=== PATIENT | male | born 1980 | race Caucasian/White ===

== ENCOUNTER 2018-08-04 08:27 | Emergency (ER) | payer MEDICAID ==
--- NOTE | 2018-08-04 10:57 | EDM.PDOC ---
ED HPI GENERAL MEDICAL PROBLEM - General Chief Complaint: Behavioral/Psych Stated Complaint: DEPRESSION AND ANXIETY Time Seen by Provider: 08/04/18 08:30 Source of Information: Reports: Patient History Limitations: Reports: No Limitations - History of Present Illness INITIAL COMMENTS - FREE TEXT/NARRATIVE: Pt is a 38 year old male with severe major depression. Pt takes Cymbalta 30mg BID and trazodone. Pt claims that he woke up today morning and he felt like dying. The taught of dying went on for 3-4 hrs. He claims that he has no plan of hurting himself. He does not want to hurt himself. When asked how he would hurt himself, he claims by drinking alcohol or stopping his medications, but would never hurt himself with weapons. He claims that he is really no depressed. He claims he wants to talk to people , but is very shy and scared to talk to people because of his depression. He linda have [facility] helping him with his depression. Onset: Today Onset Date: 08/04/18 Onset Time: 06:00 Severity: Mild Improves with: Reports: None Worsens with: Reports: None Associated Symptoms: Denies: Confusion, Chest Pain, Cough, Diaphoresis, Fever/ Chills, Headaches, Loss of Appetite, Malaise, Nausea/Vomiting, Rash, Seizure, Shortness of Breath, Syncope, Weakness - Related Data Allergies Allergy/AdvReac Type Severity Reaction Status Date / Time No Known Allergies Allergy Verified 08/04/18 08:36 Home Meds: Home Meds DULoxetine HCl [Cymbalta] 30 mg PO BID 05/04/18 [History] traZODone 50 mg PO BEDTIME 07/19/18 [History] Past Medical History Respiratory History: Reports: Other (See Below) Other Respiratory History: hx of pneumonia as a child; had surgery to remove it Psychiatric History: Reports: Depression, Other (See Below) Other Psychiatric History: Insomnia - Past Surgical History HEENT Surgical History: Reports: Oral Surgery, Other (See Below) Other HEENT Surgeries/Procedures: tubes put in ears Respiratory Surgical History: Reports: Pneumonectomy Social & Family History - Family History Family Medical History: Noncontributory - Caffeine Use Caffeine Use: Reports: Soda ED ROS GENERAL - Review of Systems Review Of Systems: See Below Constitutional: Denies: Fever, Chills, Malaise, Weakness HEENT: Denies: Rhinitis, Throat Pain, Throat Swelling Respiratory: Reports: Wheezing. Denies: Shortness of Breath, Pleuritic Chest Pain, Cough, Sputum Cardiovascular: Denies: Chest Pain, Lightheadedness GI/Abdominal: Denies: Abdominal Pain, Diarrhea, Nausea, Vomiting Musculoskeletal: Denies: Joint Pain, Joint Swelling Skin: Denies: Bruising, Pruritis, Rash Neurological: Denies: Confusion, Dizziness Psychiatric: Reports: Depression, Suicidal Ideation. Denies: Agitation, Anxiety , Confusion, Cravings, Hallucinations, Homicidal Ideation, Mood Lability ED EXAM, GENERAL - Physical Exam Exam: See Below Exam Limited By: No Limitations General Appearance: Alert, WD/WN, No Apparent Distress Eye Exam: Bilateral Eye: EOMI, PERRL Ears: Normal External Exam, Normal Canal, Hearing Grossly Normal, Normal TMs Ear Exam: Bilateral Ear: Auricle Normal, Canal Normal, TM normal Nose: Normal Inspection, Normal Mucosa, No Blood Throat/Mouth: Normal Inspection, Normal Lips, Normal Teeth, Normal Gums, Normal Oropharynx, Normal Voice, No Airway Compromise Head: Atraumatic, Normocephalic Neck: Normal Inspection, Supple, Non-Tender, Full Range of Motion Respiratory/Chest: No Respiratory Distress, Lungs Clear, Normal Breath Sounds, No Accessory Muscle Use, Chest Non-Tender Cardiovascular: Normal Peripheral Pulses, Regular Rate, Rhythm, No Edema, No Gallop, No JVD, No Murmur, No Rub Peripheral Pulses: 2+: Radial (L), Radial (R) Extremities: Normal Inspection, Normal Range of Motion, Non-Tender, Normal Capillary Refill, No Pedal Edema Neurological: Alert, Oriented, CN II-XII Intact, Normal Cognition, Normal Gait, Normal Reflexes, No Motor/Sensory Deficits Psychiatric: Normal Affect, Depressed Mood, Other (Pt is very happy and smiling) . No: Flat Affect, Tearful Course - Vital Signs Text/Narrative:: Pt is very pleasant middle aged male well known to us. He has chronic major depression. He has been feeling low. He says he feels like dying for past 4 hrs now.But he will never hurt himself with weapons. He has been taking his medications. He claims he feels like this some times only. He claims that talking to people does make him feel better, but he is scared to talk to people because of his depression. I do feel patient will benefit from counselling, as he like to talk, but has nobody to talk. I did have psychiatric evaluation done in the emergency room through shadi mckenzie the counsellor feels patient is not in any risk of suicide, but should have outpatient counselling scheduled. I did discuss the report with patient. He feels happy. Wants to try counselling. Pt reassured advised to continue his medication. If he does have any suicidal taught or feel severely depressed or tearful should return to emergency room. Otherwise followup in clinic next week for recheck. Departure - Departure Time of Disposition: 11:00 Disposition: Home, Self-Care 01 Condition: Fair Clinical Impression: Depression with suicidal ideation - Discharge Information *PRESCRIPTION DRUG MONITORING PROGRAM REVIEWED*: Not Applicable *COPY OF PRESCRIPTION DRUG MONITORING REPORT IN PATIENT DIA: Not Applicable Referrals: PCP,None [Primary Care Provider] - Forms: ED Department Discharge - Problem List & Annotations (1) Depression with suicidal ideation SNOMED Code(s): 30099860 Code(s): F32.9 - MAJOR DEPRESSIVE DISORDER, SINGLE EPISODE, UNSPECIFIED; R45.851 - SUICIDAL IDEATIONS Status: Acute - Problem List Review Problem List Initiated/Reviewed/Updated: Yes - Assessment/Plan Assessment:: Depression with suicidal taught Plan: Pt is very pleasant middle aged male well known to us. He has chronic major depression. He has been feeling low. He says he feels like dying for past 4 hrs now.But he will never hurt himself with weapons. He has been taking his medications. He claims he feels like this some times only. He claims that talking to people does make him feel better, but he is scared to talk to people because of his depression. I do feel patient will benefit from counselling, as he like to talk, but has nobody to talk. I did have psychiatric evaluation done in the emergency room through shadi mckenzie the counsellor feels patient is not in any risk of suicide, but should have outpatient counselling scheduled. I did discuss the report with patient. He feels happy. Wants to try counselling. Pt reassured advised to continue his medication. If he does have any suicidal taught or feel severely depressed or tearful should return to emergency room. Otherwise followup in clinic next week for recheck.
== END 2018-08-04 11:09 | disposition home or self-care (01) ==
LOC: LB.ED 08:27
DX: F32.9 Major depressive disorder, single episode, unspecified (principal)
CPT/HCPCS: 99283

== ENCOUNTER 2019-05-03 05:05 | Emergency (ER) | payer MEDICAID ==
[2019-05-03] MEDS ORDERED: Sodium Chloride 0.9% 1,000 ML IV SCH (07:00)
--- NOTE | 2019-05-03 12:02 | ER ---
REASON FOR EMERGENCY ROOM VISIT: Alcohol intoxication and depression. HISTORY: This 39-year-old man had been drinking quite a bit throughout the day yesterday and in the early hours of this morning called an ambulance and said that he wanted "help." He was seen by the ambulance crew and had the smell of alcohol on his breath and had garbled speech, but he is known also have a speech impediment. He admitted to having a great deal of alcohol yesterday and is a regular marijuana smoker. It sounds like he has been drinking more than usual lately, but he has been known to do this from time to time. At this time, he was interviewed, he seemed to be somewhat intoxicated and was unable to actually give me a good idea as to how often he has been drinking. He does have a history of significant depression for which he has seen Dr. De La Rosa apparently in [place]. He denies any intent to harm himself at this time, but states that he has been feeling depressed lately. PAST MEDICAL HISTORY: Significant for, 1. Speech impediment. 2. Depression. 3. Pulmonary resection. 4. Marijuana and alcohol abuse. MEDICATIONS: He normally is supposed to be taking duloxetine 30 mg p.o. b.i.d. (he said he ran out). He also has taken trazodone 50 mg p.o. at bedtime p.r.n. ALLERGIES: NONE TO MEDICATIONS. SOCIAL HISTORY: He is not . He lives with 2 roommates. He works at [employer]. He admits to drinking alcohol sporadically, sometimes frequently as well as regular use of marijuana. REVIEW OF SYSTEMS: Pertinent positives and negatives as listed above. IMPRESSION: 1. Alcohol intoxication. 2. Depression. FURTHER EMERGENCY ROOM COURSE: We did get a toxicology screen which was positive for marijuana. His blood alcohol level was quite elevated at 374 mg/dL. Repeat determination 4 hours later showed that it was coming down to 268 mg/dL. He was given 1 L normal saline IV over 4 hours and allowed to simply sleep it off. When he awoke, he was much more lucid and I once again had a conversation with him regarding the importance of followup with his provider as well as his psychologist. He should be able to see his provider to discuss whether or not he should continue his Cymbalta or any of other course of action. I cautioned him about his drinking binges and that this could have grave long-term consequences for him. He understands and agrees with this plan. All questions were answered. YOSHI /[id number] BRISEYDA
== END 2019-05-03 10:59 | disposition home or self-care (01) ==
LOC: LB.ED 05:05
DX: F10.120 Alcohol abuse with intoxication, uncomplicated (principal); F32.9 Major depressive disorder, single episode, unspecified
CPT/HCPCS: 36415; 80053; 80307; 80320; 96360; 96361; 99284; J7030; A0425; A0429; G0480

== ENCOUNTER 2019-05-23 | Observation (INO) | payer MEDICAID ==
[2019-05-23] MEDS: Sodium Chloride 0.9% 1,000 ML IV SCH ×2 (01:30→11:07)
--- NOTE | 2019-05-23 02:32 | ER ---
Emergency Room Note and Admission History and Physical REASON FOR ADMISSION: Breathing difficulty. HISTORY OF PRESENT ILLNESS: This 39-year-old man with a known speech impediment and a past history of issues related to depression and alcohol abuse as well as marijuana abuse, who was at a republican at some friend's house when they noticed that he was having some difficulty breathing and shaking fairly violently. He did not lose any consciousness to this episode and further details are unknown at this time. The friends who witnessed this, called an ambulance, and they arrived and brought him to the emergency room for evaluation. The patient has no prior seizure history. He does have a history of alcohol abuse, depression, and marijuana abuse, and has admitted in the past that he is a very regular user of marijuana probably on a daily basis. There was an additional concern related to the ambulance crew that arrived that they had noticed an empty box that contained cough medicine and the patient admitted that he had ingested some cough medicine at least a portion of a bottle. At this time, he is fairly alert and answers questions reasonably appropriately considering his speech impediment which is significant. He was last seen in the emergency room and observed overnight on 05/03 with acute alcohol intoxication and depression issues. In that regard, he denies feeling depressed lately. He states that at this time, he only drinks about one beer per day. When he was admitted last time, he stated that he was seeing Dr. De La Rosa in [place] for his depression and was being followed by him in that regard. There was no witnessed incontinence of urine or actual tonic-clonic seizure activity, but he was shaking and trembling quite vigorously according to the observers where they were gathered. PAST MEDICAL HISTORY: 1. Speech impediment. 2. History of alcohol abuse. 3. History of marijuana abuse. 4. History of pulmonary resection. MEDICATIONS: Include: 1. Duloxetine. 2. Trazodone at bedtime. ALLERGIES: NONE TO MEDICATIONS. SOCIAL HISTORY: He is not . He lives with 2 roommates and works at [employer]. He admits to being a regular pot smoker on almost daily basis. His alcohol ingestion lately has been fairly light (1 beer per day). REVIEW OF SYSTEMS: Pertinent positives and negatives as listed in the HPI. PHYSICAL EXAMINATION: GENERAL: He is afebrile. Pulse 109, blood pressure 156/86, respiratory rate 22, O2 sats 97% on room air. GENERAL: He is reasonably alert and in no acute distress at this time. HEENT: He has a mild reddish rash about his face, it almost looks like a flash-type burn or sunburn. He is unaware of this. His pupils are midposition, but reacting to light. Oropharynx is normal. NECK: Supple. No JVD. Trachea is midline. CHEST: Clear to auscultation with good breath sounds and good air exchange bilaterally and no wheezes, rhonchi, or rales. CARDIAC: Regular rate without murmur. ABDOMEN: Soft. EXTREMITIES: No deformities. Normal pulses. No cyanosis. NEUROLOGIC: Cranial nerves 2 through 12 are intact. He does have some slight nystagmus in both eyes with both lateral and medial gaze. Muscle strength, bulk, and tone is normal and symmetrical bilaterally. When I did try to get him to demonstrate muscle strength in his lower extremities, he was very tight and he had lot of tremor in his lower extremities that was almost an intention tremor type of thing, but they were both symmetrical. His deep tendon reflexes were symmetrical but not brisk. Sensation is intact to crude touch. SKIN: Rash as described above. LABORATORY DATA: Tox screen is pending at this time as well as blood alcohol. CBC is unremarkable with a WBC of 8.5 and hemoglobin of 14.7. CMP is pending at the time of this dictation as well. We also have a blood alcohol level pending. IMPRESSION: 1. Substance abuse including marijuana and possibly additional substance. 2. Episode of shaking and respiratory distress by history, not witnessed here. PLAN: The sensible thing at this point would be to simply admit him and observe him and check his vitals frequently. We will have to keep an eye on him to see if there is any witnessed seizure-type of activity. I will go ahead and give him a liter of normal saline and await his toxicology screen to see if there is anything else. The patient is agreeable to this. He will be followed later on this morning by Dr. Hernandez in my absence. SEN/KIYA /[id number]
[2019-05-23] MEDS ORDERED: LORazepam 1 MG Tab PO ONE (09:45)
--- NOTE | 2019-05-23 11:02 | PCM.PN ---
- General Info Date of Service: 05/23/19 Subjective Update: Patient continues to have agitation and anxiety. He appears very tense and looks around the room oddly. He later discussed with nursing that he took 16 tablets of Coricidin. Poison control was contacted and recommendations for further monitoring to be followed and EKG, LABS to be done. Functional Status: Reports: Tolerating Diet - Review of Systems General: Reports: Other (agitation) HEENT: Reports: Visual Changes Pulmonary: Reports: No Symptoms Cardiovascular: Reports: No Symptoms Gastrointestinal: Reports: No Symptoms Musculoskeletal: Reports: No Symptoms Skin: Reports: No Symptoms Neurological: Reports: Confusion Psychiatric: Reports: Hallucinations - Patient Data Vitals - Most Recent: Last Vital Signs Temp 37.9 C 05/23/19 10:00 Pulse 79 05/23/19 10:00 Resp 16 05/23/19 10:00 BP 150/103 H 05/23/19 10:00 Pulse Ox 95 05/23/19 10:00 Weight - Most Recent: 63.503 kg I&O - Last 24 Hours: Intake & Output 05/22/19 05/23/19 05/23/19 22:59 06:59 14:59 Intake Total 460 Output Total 660 Balance -200 Lab Results Last 24 Hours: Laboratory Results - last 24 hr 05/23/19 05/23/19 05/23/19 Range/Units 00:40 00:40 04:35 WBC 8.5 (4.0-11.0) K/uL RBC 4.48 L (4.50-6.50) M/uL Hgb 14.7 (13.0-18.0) g/dL Hct 42.9 (40.0-54.0) % MCV 96 (76-96) fL MCH 32.8 H (27.0-32.0) pg MCHC 34.3 (31.0-35.0) g/dL RDW 13.1 (11.0-16.0) % Plt Count 269 (150-400) K/uL MPV 9.3 (6.0-10.0) fL Neut % (Auto) 85.8 H (45.0-70.0) % Lymph % (Auto) 8.8 L (20.0-40.0) % [place] % (Auto) 4.7 (3.0-10.0) % Eos % (Auto) 0.2 L (1.0-5.0) % Baso % (Auto) 0.5 (0.0-0.5) % Neut # (Auto) 7.28 (2.00-7.50) K/uL Lymph # (Auto) 0.75 L (1.50-4.00) K/uL [place] # (Auto) 0.40 (0.20-0.80) K/uL Eos # (Auto) 0.02 L (0.04-0.40) K/uL Baso # (Auto) 0.04 (0.02-0.10) K/uL Sodium 137 (136-145) mmol/L Potassium 3.8 (3.5-5.1) mmol/L Chloride 102 (98-107) mmol/L Carbon Dioxide 26.4 (21.0-32.0) mmol/L Anion Gap 12.4 (5.0-15.0) mmol/L BUN 18 (8-26) mg/dL Creatinine 1.16 (0.70-1.30) mg/dL Est Cr Clr Drug Dosing TNP Estimated GFR (MDRD) > 60 (>60) MLS/MIN BUN/Creatinine Ratio 15.5 (6-25) Glucose 124 H (74-100) mg/dL Calcium 8.2 L (8.5-10.1) mg/dL Total Bilirubin 0.4 (0.0-1.0) mg/dL AST 25 (15-37) U/L ALT 28 (12-78) U/L Alkaline Phosphatase 80 (46-116) U/L Total Protein 7.2 (6.4-8.2) g/dL Albumin 3.8 (3.4-5.0) g/dL Globulin 3.4 (2.2-4.2) g/dL Albumin/Globulin Ratio 1.1 (0.8-2.0) Urine Opiates Screen Negative (NEGATIVE) Ur Oxycodone Screen Positive H (NEGATIVE) Urine Methadone Screen Negative (NEGATIVE) Ur Barbiturates Screen Negative (NEGATIVE) Ur Tricyclics Screen Negative (NEGATIVE) Ur Phencyclidine Scrn Negative (NEGATIVE) Ur Amphetamine Screen Negative (NEGATIVE) U Methamphetamines Scrn Negative (NEGATIVE) Urine MDMA Screen Negative (NEGATIVE) U Benzodiazepines Scrn Negative (NEGATIVE) U Cocaine Metab Screen Negative (NEGATIVE) U Marijuana (THC) Screen Negative (NEGATIVE) Ethyl Alcohol < 3.0 (<3.0) mg/dL Med Orders - Current: Current Medications Sodium Chloride (Normal Saline) 1,000 mls @ 100 mls/hr IV ASDIRECTED NAVARRO Last Admin: 05/23/19 01:30 Dose: 100 mls/hr Discontinued Medications Lorazepam (Ativan) 1 mg PO ONETIME ONE Stop: 05/23/19 09:46 - Exam General: Alert, Cooperative HEENT: Pupils Equal, Pupils Reactive, EOMI Neck: Supple Lungs: Clear to Auscultation, Normal Respiratory Effort Cardiovascular: Regular Rate, Regular Rhythm Back Exam: Normal Inspection Extremities: Normal Inspection - Problem List & Annotations (1) Overuse of medication SNOMED Code(s): 674108233 Code(s): Z91.14 - PATIENT'S OTHER NONCOMPLIANCE WITH MEDICATION REGIMEN Status: Acute Priority: High - Problem List Review Problem List Initiated/Reviewed/Updated: Yes - My Orders Last 24 Hours: My Active Orders 05/23/19 09:44 EKG 12 Lead [EK] Routine 05/23/19 09:45 EKG Documentation Completion [RC] ASDIRECTED ACETAMINOPHEN [CHEM] Urgent - Plan Plan:: Patient counseled on medication use. Patient acknowledged to taking 16 tablets of Coricidin. He does appear to be having hallucinations. Patient to remain in observation and obtain more fluids. EKG to be done and labs as needed.
[2019-05-24] MEDS ORDERED: DULoxetine 30 MG Cap ONE ×2 (00:15→09:31)
--- NOTE | 2019-05-24 11:09 | DISCH ---
HOSPITAL COURSE: He was admitted for intoxication and it turns out he overdosed on Coricidin stating that he had taken 16 tablets. The patient was having some hallucinatory symptoms initially; now overnight, he has improved greatly. The patient tells me he feels fine this morning. He feels much better. The patient does have history of mental health issues and was on Cymbalta before. He would like to be restarted on it. He has not been on it now for a while. The patient tells me that he feels fine and he is ready to go home. I discussed the patient's case with nursing staff and they agree. His symptoms have resolved and he has been doing well. PHYSICAL EXAMINATION: VITAL SIGNS: Reviewed. The patient is afebrile today. Pulse 66, blood pressure 124/88, respirations 16, O2 sats 100%. LUNGS: Clear to auscultation. CARDIAC: Heart sounds distinct without murmurs. SKIN: Warm and dry. The patient has soiled himself, being incontinent of urine during the night, which is still present. The patient was able to get up and walk across the room and a normal smooth gait. He keeps telling me that he feels fine and how he has learned his lesson. He tells me he used to drink alcohol, but he quit doing that because that was causing issues for him and now he turned to some other things and this time, it was Coricidin. The patient will be discharged today. I will resume his Cymbalta and I do want the patient to follow up in the clinic sometime next week and establish care with a primary care provider, which he states he does not have. MIKE/KIYA /[id number]
== END 2019-05-24 09:55 | disposition home or self-care (01) ==
LOC: LB.ED → LB.MS 01:15 → UNDOADMOB 01:15 → LB.MS 07:19
PROVIDERS: ADMIT Surgery; ATTEND Surgery
DX: T48.3X1A Poisoning by antitussives, accidental (unintentional), initial encounter (principal); R41.0 Disorientation, unspecified; R44.3 Hallucinations, unspecified; F41.9 Anxiety disorder, unspecified; F12.10 Cannabis abuse, uncomplicated; F32.9 Major depressive disorder, single episode, unspecified; F17.210 Nicotine dependence, cigarettes, uncomplicated; Z79.899 Other long term (current) drug therapy; Z91.14 Patient's other noncompliance with medication regimen
CPT/HCPCS: 36415; 80053; 80307; 85025; 93005; 96360; 96361; 99285; A0425; A0429; A9270-GY; G0378; G0480; J7030